=== PATIENT | female | born 1995 | race African-American/Black ===

== ENCOUNTER 2019-02-23 09:50 | Emergency (ER) | payer OTHER ==
[~2019-02-23] VITALS: Ht 162.6 cm; Wt 57.4 kg
[2019-02-23 09:50] VITALS: BP 111/86
--- NOTE | 2019-02-23 10:17 | PHYS DOC ---
Past History Past Medical History: No Pertinent History Past Surgical History: No Surgical History Smoking: Non-smoker Alcohol Use: None Drug Use: None Adult General Chief Complaint Chief Complaint: VAGINAL PROBLEM HPI HPI Patient is a 23-year-old female presents complaining of vaginal discharge for the past 3 days. She was seen 2 days ago at an urgent care diagnosed with a yeast infection and given a dose of Diflucan. She reports that she is having worsening discharge. Denies any dysuria or hematuria. She reports that she is sexually active. Denies being . Denies any previous pelvic surgery. Denies any fever or back pain. No improvement with ibuprofen. Nothing seems to make the symptoms better or worse.[] Review of Systems Review of Systems Constitutional: Denies fever or chills [] Eyes: Denies change in visual acuity, redness, or eye pain [] HENT: Denies nasal congestion or sore throat [] Respiratory: Denies cough or shortness of breath [] Cardiovascular: No chest pain or palpitations[] GI: Denies abdominal pain, nausea, vomiting, bloody stools or diarrhea [] : Denies dysuria or hematuria [] Musculoskeletal: Denies back pain or joint pain [] Integument: Denies rash or skin lesions [] Neurologic: Denies headache, focal weakness or sensory changes [] Endocrine: Denies polyuria or polydipsia [] All other systems were reviewed and found to be within normal limits, except as documented in this note. Allergies Allergies Allergies Coded Allergies Type Severity Reaction Last Updated Verified No Known Drug Allergies 02/23/19 No Physical Exam Physical Exam Constitutional: Well developed, well nourished, no acute distress, non-toxic appearance. [] HENT: Normocephalic, atraumatic, bilateral external ears normal, oropharynx moist, no oral exudates, nose normal. [] Eyes: PERRLA, EOMI, conjunctiva normal, no discharge. [] Neck: Normal range of motion, no tenderness, supple, no stridor. [] Cardiovascular:Heart rate regular rhythm, no murmur [] Lungs & Thorax: Bilateral breath sounds clear to auscultation [] Abdomen: Bowel sounds normal, soft, no tenderness, no masses, no pulsatile masses. Pelvic exam: External genitalia - normal. Vaginal vault-scant discharge, no blood. Cervixno cervical motion tenderness. Bimanual examno abnormal masses, no significant tenderness [] Skin: Warm, dry, no erythema, no rash. [] Back: No tenderness, no CVA tenderness. [] Extremities: No tenderness, no cyanosis, no clubbing, ROM intact, no edema. [] Neurologic: Alert and oriented X 3, normal motor function, normal sensory function, no focal deficits noted. [] Psychologic: Affect normal, judgement normal, mood normal. [] Current Patient Data Lab Results Laboratory Tests Test 02/23/19 10:09 POC Urine HCG, Qualitative hcg negative (Negative) EKG EKG [] Radiology/Procedures Radiology/Procedures [] Course & Med Decision Making Course & Med Decision Making Pertinent Labs and Imaging studies reviewed. (See chart for details) ED course: Patient arrived, was placed in bed, in tolerated exam well. The exam was performed with a tire care manager. After the return of the laboratory findings, these were discussed with the patient who voiced understanding. All questions were answered. She was discharged in improved condition. Medical decision making: Patient with vaginal discharge and irritation. She has been treated for common STDs while laboratory testing is pending. There is no evidence of a yeast infection at this time. She does have small amount of blood in her urine which can be followed as an outpatient. There is no evidence of a tubo-ovarian abscess. No evidence of pelvic inflammatory disease on exam. No e vidence of systemic toxicity. Will also address pain management.[] Dragon Disclaimer Dragon Disclaimer This electronic medical record was generated, in whole or in part, using a voice recognition dictation system. Departure Departure: Impression: Primary Impression: Pelvic pain Disposition: 01 HOME, SELF-CARE Condition: IMPROVED Referrals: NALLELY MOORE (PCP) Follow up in 2 days Patient Instructions: Pelvic Pain, Female Additional Instructions: Follow-up with your regular doctor in 2 days. Take the medication as prescribed. There is a microscopic amount of blood in your urine that needs to be followed up by your primary care team. Return to the ER if worsening pain, bleeding, or any other concerns. Scripts Clindamycin Phosphate (CLINDAMYCIN PHOSPHATE) 40 Gm Cream.appl 1 APPFUL VG QHS for pelvic pain, #40 GM Prov: SUBHASH MIMS DO 02/23/19 Meloxicam (MELOXICAM) 7.5 Mg Tablet 7.5 MG PO DAILY for PAIN, #20 TAB Prov: SUBHASH MIMS DO 02/23/19 SUBHASH MIMS DO February 23, 2019 10:17
[2019-02-23] MEDS ORDERED: LIDOCAINE 1% Multi-Dose 20 ML VIAL. ONE (10:21)
[2019-02-23] MEDS ORDERED: AZITHROMYCIN 250 MG TABLET. PO ONE (10:30)
[2019-02-23] MEDS ORDERED: ONDANSETRON ODT 4 MG TAB.RAPDIS PO ONE (10:30)
[2019-02-23] MEDS ORDERED: cefTRIAXone IM 250 MG VIAL IM ONE (10:30)
[2019-02-23 10:31] LABS: BILIRUBIN,URINE NEG (NEG); CLARITY,URINE CLOUDY; COLOR,URINE YELLOW; GLUCOSE,URINE NEG (NEG)
[2019-02-23 10:32] LABS: BACTERIA,URINE MANY /HPF (0-FEW); NITRITE,URINE NEG (NEG); RBC,URINE 20-40 /HPF (0-2); SQUAMOUS EPITHELIAL CELL,UR MANY /LPF; UROBILINOGEN,URINE 1 mg/dL (0.2 mg/dL)
[2019-02-23] MEDS ORDERED: MELO7.5T29 PO (11:13)
[2019-02-23] MEDS ORDERED: CLIN40CR2 VG (11:13)
== END 2019-02-23 11:30 | disposition home or self-care (01) ==
LOC: ER 09:50
DX: R10.2 Pelvic and perineal pain (principal); N89.8 Other specified noninflammatory disorders of vagina
CPT/HCPCS: 36415; 81001; 81025; 96372; 99284; J0456; J0696; Q0111; Q0162; 87086; 87491; 87591